=== PATIENT | male | born 1950 | race Asian ===

== ENCOUNTER 2017-02-11 03:35 | Inpatient (IN) | payer MEDICARE, OTHER ==
[~2017-02-11] VITALS: Ht 165.1 cm; Wt 56.4 kg
[2017-02-11] MEDS ORDERED: DILT120T PO (03:41)
[2017-02-11] MEDS ORDERED: ATOR40TA28 PO (03:41)
[2017-02-11] MEDS ORDERED: METF500T4 PO (03:41)
[2017-02-11] MEDS ORDERED: PANT40TA25 PO (03:41)
[2017-02-11] MEDS ORDERED: FERR-89 PO (03:41)
[2017-02-11] MEDS ORDERED: LISI-662 PO (03:41)
[2017-02-11] MEDS ORDERED: ASPI-1182 PO (03:41)
[2017-02-11] MEDS ORDERED: 0.9% SODIUM CHLORIDE 10 ML SYRINGE IVP PRN ×2 (03:45→04:45)
[2017-02-11 03:57] LABS: GLUCOSE,POINT OF CARE 176 MG/DL (70-110)
[2017-02-11 03:58] LABS: BASOPHILS % (AUTO) 0.4 % (0.0-2.0); EOSINOPHILS % (AUTO) 0.9 % (1.0-6.0); HEMATOCRIT 43.1 % (41-53); HEMOGLOBIN 14.6 g/dL (13.5-17.5); LYMPHOCYTES # (AUTO) 4.6 K/uL (1.0-4.8); LYMPHOCYTES % (AUTO) 34.6 % (22.0-44.0); MEAN CORPUSCULAR VOLUME 85 fL (80-100); MONOCYTES # (AUTO) 1.1 K/uL (0.1-1.0); MONOCYTES % (AUTO) 7.9 % (2.0-9.0); NEUTROPHILS # (AUTO) 7.5 K/uL (1.8-7.7); NEUTROPHILS % (AUTO) 56.2 % (40.0-70.0); PLATELET COUNT (AUTO) 242 K/uL (150-450); RED BLOOD CELL COUNT(AUTO) 5.05 MIL/uL (4.50-5.90); RED CELL DISTRIBUTION WIDTH 12.5 % (11.5-14.5); WHITE BLOOD COUNT (AUTO) 13.3 K/uL (4.5-11.0)
[2017-02-11 04:10] LABS: INR 0.9 (0.9-1.1)
[2017-02-11] MEDS ORDERED: ASPIRIN 325 MG TABLET PO ONE (04:15)
[2017-02-11] MEDS ORDERED: METOPROLOL TARTRATE 5 MG/5 ML VIAL IVP ONE ×3 (04:15)
[2017-02-11 04:16] LABS: ALANINE AMINOTRANSFERASE 13 U/L (12-78); ANION GAP 10 mmol/L (8-16); ASPARTATE AMINOTRANSFERASE 18 U/L (15-37); BILIRUBIN,TOTAL 0.5 mg/dL (0.1-1.0); CARBON DIOXIDE 30 mmol/L (22-29); CHLORIDE 87 mmol/L (98-107); CREATINE KINASE, TOTAL 94 U/L (39-308); GLOMERULAR FILTR. RATE CALC 35 mL/min (>60); SODIUM SERUM 127 mmol/L (136-145); UREA NITROGEN, BLOOD 19 mg/dL (7-18)
[2017-02-11 04:17] LABS: ALBUMIN 4.7 g/dL (3.4-5.0); TOTAL PROTEIN, SERUM 8.7 g/dL (6.4-8.2)
[2017-02-11] MEDS ORDERED: IOVERSOL 350 MG/ML 100 ML VIAL ONE (04:17)
[2017-02-11] MEDS ORDERED: SODIUM CHLORIDE 0.9% 100 ML ONE (04:17)
[2017-02-11 04:32] LABS: CREATINE KINASE MB 0.6 ng/mL (0-5)
[2017-02-11] MEDS ORDERED: ONDANSETRON HCL 4 MG/2 ML VIAL IVP PRN (04:45)
[2017-02-11] MEDS ORDERED: ACETAMINOPHEN 325 MG TABLET PO PRN ×2 (04:45→08:45)
[2017-02-11 05:26] VITALS: BP 140/76
[2017-02-11] MEDS ORDERED: INFLUENZA VIRUS VACCINE QVS 2017-18 (3YR+)/PF 60 MCG/0.5 ML SYRINGE IM ONE (06:00)
[2017-02-11 08:37] VITALS: BP 103/69
[2017-02-11] MEDS ORDERED: INSULIN ASPART 100 UNITS/ML SQ PRN (08:45)
[2017-02-11] MEDS ORDERED: DEXTROSE 50%-WATER 25 GM/50 ML SYRINGE IVP PRN (08:45)
[2017-02-11] MEDS ORDERED: ALBUTEROL SULFATE 2.5 MG/0.5 ML NEB SOLUTION NEB PRN (08:45)
[2017-02-11] MEDS ORDERED: BISACODYL 10 MG RECTAL RECTAL SUPPOSITORY PR PRN (08:45)
[2017-02-11] MEDS: DOCUSATE SODIUM 100 MG CAPSULE PO SCH ×2 (09:00→19:57)
[2017-02-11] MEDS: PANTOPRAZOLE SODIUM 40 MG DR TABLET PO SCH (09:20)
[2017-02-11] MEDS: ASPIRIN 81 MG CHEWABLE TABLET PO SCH (09:20)
[2017-02-11] MEDS: HEPARIN SODIUM,PORCINE 5,000 UNITS/ML VIAL SQ SCH ×2 (09:21→19:58)
[2017-02-11] MEDS: SODIUM CHLORIDE 0.9% 1,000 ML IV SCH ×2 (09:24→23:39)
[2017-02-11 11:37] VITALS: BP 132/92
[2017-02-11 11:42] LABS: APPEARANCE,URINE CLEAR (CLEAR); GLUCOSE, URINE (UA) NEGATIVE (NEGATIVE); KETONES,URINE TRACE mg/dL (NEGATIVE); LEUKOCYTE ESTERASE ,URINE NEGATIVE (NEGATIVE); OCCULT BLOOD,URINE NEGATIVE (NEGATIVE); PROTEIN,URINE NEGATIVE (NEGATIVE)
[2017-02-11 12:10] LABS: ADD UA MICROSCOPIC NO
[2017-02-11 15:48] VITALS: BP 135/99
[2017-02-11 19:49] VITALS: BP 146/96
[2017-02-11] MEDS: ATORVASTATIN CALCIUM 20 MG TABLET PO SCH (19:57)
[2017-02-11 20:43] LABS: GLUCOSE,POINT OF CARE 106 MG/DL (70-110)
[2017-02-11 20:43] LABS: GLUCOSE,POINT OF CARE 126 MG/DL (70-110)
[2017-02-11 23:49] VITALS: BP 155/108
[2017-02-12 07:32] VITALS: BP 148/110
[2017-02-12] MEDS: DOCUSATE SODIUM 100 MG CAPSULE PO SCH ×2 (09:00→20:44)
[2017-02-12] MEDS: HEPARIN SODIUM,PORCINE 5,000 UNITS/ML VIAL SQ SCH ×2 (09:26→20:44)
[2017-02-12] MEDS: ASPIRIN 81 MG CHEWABLE TABLET PO SCH (09:26)
[2017-02-12] MEDS: PANTOPRAZOLE SODIUM 40 MG DR TABLET PO SCH (09:26)
[2017-02-12 11:27] VITALS: BP 150/102
[2017-02-12] MEDS: SODIUM CHLORIDE 0.9% 1,000 ML IV SCH (13:25)
[2017-02-12] MEDS: METOPROLOL TARTRATE 25 MG TABLET PO SCH ×2 (13:25→20:44)
[2017-02-12 15:24] VITALS: BP 127/92
[2017-02-12 20:11] VITALS: BP 128/89
[2017-02-12 20:14] LABS: GLUCOSE,POINT OF CARE 129 MG/DL (70-110)
[2017-02-12 20:15] LABS: GLUCOSE,POINT OF CARE 119 MG/DL (70-110)
[2017-02-12 20:17] LABS: GLUCOSE,POINT OF CARE 127 MG/DL (70-110)
[2017-02-12] MEDS: ATORVASTATIN CALCIUM 20 MG TABLET PO SCH (20:44)
[2017-02-12 21:07] LABS: GLUCOSE,POINT OF CARE 122 MG/DL (70-110)
[2017-02-13 00:12] VITALS: BP 130/87
[2017-02-13] MEDS: SODIUM CHLORIDE 0.9% 1,000 ML IV SCH (03:38)
[2017-02-13 04:24] VITALS: BP 129/92
[2017-02-13 08:01] VITALS: BP 139/92
[2017-02-13] MEDS: ASPIRIN 81 MG CHEWABLE TABLET PO SCH (08:54)
[2017-02-13] MEDS: DOCUSATE SODIUM 100 MG CAPSULE PO SCH (08:54)
[2017-02-13] MEDS: METOPROLOL TARTRATE 25 MG TABLET PO SCH (08:54)
[2017-02-13] MEDS: PANTOPRAZOLE SODIUM 40 MG DR TABLET PO SCH (08:54)
[2017-02-13] MEDS: HEPARIN SODIUM,PORCINE 5,000 UNITS/ML VIAL SQ SCH (08:55)
[2017-02-13 11:26] LABS: BASOPHILS % (AUTO) 0.9 % (0.0-2.0); EOSINOPHILS % (AUTO) 0.7 % (1.0-6.0); HEMATOCRIT 35.3 % (41-53); HEMOGLOBIN 12.3 g/dL (13.5-17.5); LYMPHOCYTES # (AUTO) 1.4 K/uL (1.0-4.8); LYMPHOCYTES % (AUTO) 22.7 % (22.0-44.0); MEAN CORPUSCULAR HEMOGLOBIN 29.5 pg (26.0-34.0); MEAN CORPUSCULAR HGB CONC 34.9 G/dL (31.0-37.0); MEAN CORPUSCULAR VOLUME 84 fL (80-100); MONOCYTES # (AUTO) 0.6 K/uL (0.1-1.0); MONOCYTES % (AUTO) 9.4 % (2.0-9.0); NEUTROPHILS # (AUTO) 4.2 K/uL (1.8-7.7); NEUTROPHILS % (AUTO) 66.3 % (40.0-70.0); PLATELET COUNT (AUTO) 228 K/uL (150-450); RED BLOOD CELL COUNT(AUTO) 4.17 MIL/uL (4.50-5.90); RED CELL DISTRIBUTION WIDTH 12.6 % (11.5-14.5); WHITE BLOOD COUNT (AUTO) 6.3 K/uL (4.5-11.0)
[2017-02-13 11:36] LABS: CALCIUM, TOTAL 7.7 mg/dL (8.8-10.5); CREATININE 1.24 mg/dL (0.60-1.30); POTASSIUM 3.2 mmol/L (3.5-5.1)
[2017-02-13 11:49] VITALS: BP 135/101
[2017-02-13] MEDS ORDERED: POTASSIUM CHLORIDE 10% 40 MEQ/30 ML LIQUID UDCUP PO ONE (12:15)
[2017-02-15 05:28] LABS: GLUCOSE,POINT OF CARE 87 MG/DL (70-110)
[2017-02-15 05:28] LABS: GLUCOSE,POINT OF CARE 116 MG/DL (70-110)
== END 2017-02-13 14:55 | disposition home health service (06) | DRG 682 ==
LOC: EMS 03:36 → 5N 04:42 → EMS 05:10 → 5S 20:10
PROVIDERS: ADMIT Internal Medicine; ATTEND Internal Medicine
DX: N17.9 Acute kidney failure, unspecified (principal); E43 Unspecified severe protein-calorie malnutrition; G93.40 Encephalopathy, unspecified; G45.9 Transient cerebral ischemic attack, unspecified; E87.1 Hypo-osmolality and hyponatremia; I48.2 Chronic atrial fibrillation; E11.9 Type 2 diabetes mellitus without complications; I10 Essential (primary) hypertension; Z68.20 Body mass index [BMI] 20.0-20.9, adult; Z86.73 Personal history of transient ischemic attack (TIA), and cerebral infarction without residual deficits; Z79.82 Long term (current) use of aspirin
CPT/HCPCS: 70496; 82962; 93005; 93880; 97162; 97530; 99291; J1644; J3490; J7030; J7050

== ENCOUNTER 2019-02-23 16:57 | Inpatient (IN) | payer OTHER ==
[~2019-02-23] VITALS: Ht 162.6 cm; Wt 46.1 kg
[~2019-02-23 16:57] MED LIST: ASPI-1182 PO; ATOR40TA28 PO; DILT120T PO; FERR-89 PO; PANT40TA25 PO
[2019-02-23] MEDS ORDERED: PANTOPRAZOLE SODIUM 40 MG/VIAL IVP ONE ×2 (17:15→22:00)
[2019-02-23] MEDS ORDERED: SODIUM CHLORIDE 0.9% 1,000 ML IV ONE ×2 (17:15→19:00)
[2019-02-23] MEDS ORDERED: DOCU-342 PO (17:18)
[2019-02-23] MEDS ORDERED: MAGN250T29 PO (17:18)
[2019-02-23] MEDS ORDERED: KDUR10 PO (17:18)
[2019-02-23] MEDS ORDERED: FURO20 PO (17:18)
[2019-02-23 19:13] LABS: HEMATOCRIT 22.1 % (41-53); HEMOGLOBIN 7.5 g/dL (13.5-17.5); MEAN CORPUSCULAR HEMOGLOBIN 29.5 pg (26.0-34.0); MEAN CORPUSCULAR VOLUME 87 fL (80-100); RED BLOOD CELL COUNT(AUTO) 2.55 MIL/uL (4.50-5.90); RED CELL DISTRIBUTION WIDTH 18.3 % (11.5-14.5)
[2019-02-23 19:24] LABS: ALBUMIN 1.6 g/dL (3.4-5.0); BILIRUBIN,TOTAL 0.5 mg/dL (0.1-1.0); CREATININE 7.92 mg/dL (0.60-1.30); POTASSIUM 4.5 mmol/L (3.5-5.1); TOTAL PROTEIN, SERUM 4.5 g/dL (6.4-8.2)
[2019-02-23 19:28] LABS: CALCIUM, TOTAL 5.3 mg/dL (8.8-10.5)
[2019-02-23] MEDS ORDERED: DESMOPRESSIN ACETATE 4 MCG/ML VIAL IVP ONE (19:30)
[2019-02-23] MEDS ORDERED: CALCIUM GLUCONATE 100 MG/ML 10 ML IVP ONE ×2 (19:45→22:00)
[2019-02-23] MEDS ORDERED: PHENYLEPHRINE 200 MG/D5%-WATER 250 ML IV PRN (19:45)
[2019-02-23 20:00] LABS: INR 1.2 (0.9-1.1); PROTHROMBIN TIME 12.5 SEC (9.4-11.6)
[2019-02-23 20:06] LABS: PLATELET COUNT (AUTO) 96 K/uL (150-450)
[2019-02-23 20:08] LABS: BAND NEUTROPHILS % (MANUAL) 10 % (0-5); LYMPHOCYTES % (MANUAL) 3 % (22-44); MONOCYTES % (MANUAL) 2 % (2-9); SEGMENTED NEUTROPHILS % 85 % (40-70)
[2019-02-23 20:29] LABS: APPEARANCE,URINE CLOUDY (CLEAR); BILIRUBIN,URINE NEGATIVE (NEGATIVE); GLUCOSE, URINE (UA) NEGATIVE (NEGATIVE); KETONES,URINE NEGATIVE (NEGATIVE); LEUKOCYTE ESTERASE ,URINE MODERATE (NEGATIVE); NITRATE,URINE NEGATIVE (NEGATIVE); OCCULT BLOOD,URINE LARGE (NEGATIVE); PROTEIN,URINE TRACE (NEGATIVE); UROBILINOGEN,URINE 0.2 mg/dL (<=1.0)
[2019-02-23] MEDS ORDERED: ONDANSETRON HCL 4 MG/2 ML VIAL IVP PRN ×2 (20:30→22:00)
[2019-02-23 20:41] LABS: BACTERIA,URINE Few /HPF (None Seen); SQUAMOUS EPITHELIAL CELL,UR Few /LPF (None Seen)
[2019-02-23 20:42] LABS: AMORPHOUS SEDIMENT,UR Moderate /LPF (None Seen)
[2019-02-23] MEDS ORDERED: CefTRIAXone 1 GM/DEXTROSE 50 ML IV ONE (20:45)
[2019-02-23] MEDS ORDERED: 0.9% SODIUM CHLORIDE 10 ML SYRINGE IVP PRN (22:00)
[2019-02-23] MEDS ORDERED: DEXTROSE 5% IV PRN (22:15)
[2019-02-23] MEDS ORDERED: CALCIUM GLUCONATE IV PRN (22:15)
[2019-02-23] MEDS ORDERED: WATER IV PRN (22:15)
[2019-02-23 22:30] VITALS: BP 95/48
[2019-02-23 22:45] VITALS: BP 112/66
[2019-02-23 23:00] VITALS: BP 83/41
[2019-02-23] MEDS ORDERED: SODIUM CHLORIDE 0.9% 250 ML IV ONE (23:04)
[2019-02-23 23:15] VITALS: BP 107/71
[2019-02-23 23:30] VITALS: BP 81/45
[2019-02-23] MEDS ORDERED: METOPROLOL TARTRATE 5 MG/5 ML VIAL IVP PRN (23:45)
[2019-02-24] VITALS (9 sets, daily range): BP systolic 85–117; BP diastolic 37–85
[2019-02-24 05:32] LABS: BASOPHILS % (AUTO) 0.2 % (0.0-2.0); EOSINOPHILS % (AUTO) 0.1 % (1.0-6.0); HEMATOCRIT 34.2 % (41-53); HEMOGLOBIN 11.3 g/dL (13.5-17.5); LYMPHOCYTES # (AUTO) 0.7 K/uL (1.0-4.8); LYMPHOCYTES % (AUTO) 5.8 % (22.0-44.0); MEAN CORPUSCULAR HEMOGLOBIN 28.8 pg (26.0-34.0); MEAN CORPUSCULAR VOLUME 87 fL (80-100); MONOCYTES # (AUTO) 0.2 K/uL (0.1-1.0); MONOCYTES % (AUTO) 1.6 % (2.0-9.0); NEUTROPHILS # (AUTO) 10.4 K/uL (1.8-7.7); PLATELET COUNT (AUTO) 88 K/uL (150-450); RED BLOOD CELL COUNT(AUTO) 3.92 MIL/uL (4.50-5.90); RED CELL DISTRIBUTION WIDTH 15.8 % (11.5-14.5)
[2019-02-24 05:38] LABS: CREATININE 7.34 mg/dL (0.60-1.30); POTASSIUM 4.4 mmol/L (3.5-5.1)
[2019-02-24 05:59] LABS: NEUTROPHILS % (AUTO) 92.3 % (40.0-70.0)
[2019-02-24] MEDS ORDERED: CALCIUM GLUCONATE 100 MG/ML 10 ML IVP ONE (09:30)
[2019-02-24] MEDS ORDERED: SODIUM BICARBONATE 75 MEQ in SODIUM CHLORIDE 0.45% 1,000 ML IV ONE (09:30)
[2019-02-24] MEDS ORDERED: MAGNESIUM SULFATE 2 GM/WATER 50 ML IV ONE ×2 (09:30→13:00)
[2019-02-24] MEDS: PANTOPRAZOLE SODIUM 40 MG/VIAL IVP SCH ×2 (09:31→21:15)
[2019-02-24] MEDS: PHYTONADIONE 10 MG/1 ML AMP IM SCH (09:32)
[2019-02-24] MEDS ORDERED: FentaNYL CITRATE-PF 100 MCG/2 ML VIAL ONE (11:28)
[2019-02-24] MEDS ORDERED: MIDAZOLAM HCL 5 MG/ML VIAL ONE (11:29)
[2019-02-24] MEDS ORDERED: SODIUM CHLORIDE 0.9% 1,000 ML IV ONE (11:38)
[2019-02-24 13:11] LABS: HEMATOCRIT 35.1 % (41-53); HEMOGLOBIN 11.8 g/dL (13.5-17.5)
[2019-02-24 13:24] LABS: CALCIUM, TOTAL 6.4 mg/dL (8.8-10.5); CREATININE 7.49 mg/dL (0.60-1.30); MAGNESIUM 3.1 mg/dL (1.80-2.40); PHOSPHORUS 4.6 mg/dL (2.5-4.9); POTASSIUM 4.3 mmol/L (3.5-5.1)
[2019-02-24 13:33] LABS: LACTIC ACID 2.5 mmol/L (0.4-2.0)
[2019-02-24] MEDS ORDERED: ALBUMIN HUMAN 5%-12.5GM/250ML 250 ML IV ONE ×2 (14:28→16:15)
[2019-02-24] MEDS ORDERED: RINGERS SOLUTION,LACTATED 1,000 ML IV ONE ×2 (14:29→14:45)
[2019-02-24] MEDS ORDERED: NOREPINEPHRINE 4 MG/D5%-WATER 250 ML IV PRN (14:45)
[2019-02-24] MEDS ORDERED: RINGERS SOLUTION,LACTATED 1,250 ML IV ONE (15:00)
[2019-02-24] MEDS: HYDROCORTISONE SOD SUCC 100 MG/2 ML VIAL IVP SCH ×2 (15:24→20:01)
[2019-02-24] MEDS: VASOPRESSIN 40 UNITS in DEXTROSE 5%-WATER 98 ML IV PRN (15:30)
[2019-02-24] MEDS ORDERED: HEPARIN SODIUM,PORCINE 1,000 UNITS/ML VIAL ONE (16:04)
[2019-02-24 16:06] LABS: CREATININE 6.86 mg/dL (0.60-1.30)
[2019-02-24 16:07] LABS: ABG A-A DIFF O2 353.8 mmHg (10-20.0); ABG CARBOXYHEMOGLOBIN 0.3 % (0.0-1.5); ABG METHEMOGLOBIN 0.3 % (0.0-1.5); ABG OXYGEN CONTENT 15.2 mL/dL (15.0-23.0); ABG OXYGEN SATURATION 99.2 % (95.0-98.0); ABG OXYHEMOGLOBIN 98.6 % (94.0-100.0); ABG PCO2 31 mmHg (35-45); ABG TOTAL HEMOGLOBIN 10.3 G/dL (12.0-18.0); PO2, ARTERIAL BG 332.3 mmHg (75.0-83.0); SOURCE, BLOOD GAS ARTERIAL; TEMPERATURE, FAHRENHEIT, BG 95.6 FAHREN (96.0-98.6)
[2019-02-24 16:08] LABS: ABG PH 7.206 (7.35-7.450); O2 DEVICE,BLOOD GAS VENTILATOR (ROOM AIR); PEEP,BG 5 cm H2O; SITE, BLOOD GAS ARTERIAL LINE; VT, ABG 350 ml
[2019-02-24] MEDS ORDERED: HEPARIN SODIUM,PORCINE 100 UNITS/ML 5 ML VIAL IVP ONE ×2 (16:15)
[2019-02-24] MEDS ORDERED: SODIUM BICARBONATE 150 MEQ in DEXTROSE 5%-WATER 1,000 ML IV ONE (16:30)
[2019-02-24] MEDS ORDERED: SODIUM BICARBONATE [ADULT] 8.4% 50 MEQ/50 ML SYRINGE IVP ONE (16:30)
[2019-02-24] MEDS ORDERED: SODIUM CHLORIDE 0.9% 2,000 ML IV ONE (18:09)
[2019-02-24] MEDS ORDERED: POTASSIUM CHLORIDE 20 MEQ in NXSTAGE RFP-402 K0/CA3 5,000 ML IRRIG PRN (18:15)
[2019-02-24 18:20] LABS: HEMATOCRIT 30.1 % (41-53); HEMOGLOBIN 10.1 g/dL (13.5-17.5)
[2019-02-24 20:42] LABS: ABG A-A DIFF O2 429.5 mmHg (10-20.0); ABG CARBOXYHEMOGLOBIN 0.3 % (0.0-1.5); ABG HCO3 18.4 mmol/L (22.0-26.0); ABG METHEMOGLOBIN 0.3 % (0.0-1.5); ABG OXYGEN CONTENT 14.3 mL/dL (15.0-23.0); ABG OXYHEMOGLOBIN 94.4 % (94.0-100.0); ABG PCO2 35 mmHg (35-45); ABG PH 7.333 (7.35-7.450); ABG TOTAL HEMOGLOBIN 10.7 G/dL (12.0-18.0); PO2, ARTERIAL BG 73.6 mmHg (75.0-83.0); SOURCE, BLOOD GAS ARTERIAL; TEMPERATURE, FAHRENHEIT, BG 93.5 FAHREN (96.0-98.6)
[2019-02-24 20:43] LABS: O2 DEVICE,BLOOD GAS VENTILATOR (ROOM AIR); PEEP,BG 5 cm H2O; SITE, BLOOD GAS ARTERIAL LINE; VT, ABG 350 ml
[2019-02-24] MEDS ORDERED: CefTRIAXone 1 GM/DEXTROSE 50 ML IV SCH (21:00)
[2019-02-24] MEDS ORDERED: PHENYLEPHRINE HCL 400 MG in DEXTROSE 5%-WATER 210 ML IV PRN (23:00)
[2019-02-25] VITALS: BP 92/55
[2019-02-25] MEDS: HYDROCORTISONE SOD SUCC 100 MG/2 ML VIAL IVP SCH ×4 (00:31→18:29)
[2019-02-25] MEDS: NOREPINEPHRINE BITARTRATE 16 MG in DEXTROSE 5%-WATER 234 ML IV PRN ×2 (02:34→16:35)
[2019-02-25] MEDS ORDERED: PROPOFOL 1% 20 ML VIAL IVP ONE (02:45)
[2019-02-25 02:48] LABS: HEMATOCRIT 31.2 % (41-53); HEMOGLOBIN 10.7 g/dL (13.5-17.5)
[2019-02-25 03:56] LABS: ABG A-A DIFF O2 355.3 mmHg (10-20.0); ABG BASE EXCESS -6.3 mmol/L (-2.0-3.0); ABG CARBOXYHEMOGLOBIN 0.1 % (0.0-1.5); ABG HCO3 19.3 mmol/L (22.0-26.0); ABG METHEMOGLOBIN 0.3 % (0.0-1.5); ABG OXYGEN CONTENT 14.9 mL/dL (15.0-23.0); ABG OXYGEN SATURATION 94.5 % (95.0-98.0); ABG OXYHEMOGLOBIN 94.1 % (94.0-100.0); ABG PCO2 43 mmHg (35-45); ABG PH 7.294 (7.35-7.450); ABG TOTAL HEMOGLOBIN 11.2 G/dL (12.0-18.0); O2 DEVICE,BLOOD GAS VENTILATOR (ROOM AIR); PO2, ARTERIAL BG 67.6 mmHg (75.0-83.0); SITE, BLOOD GAS ARTERIAL LINE; SOURCE, BLOOD GAS ARTERIAL
[2019-02-25 03:57] LABS: PEEP,BG 5 cm H2O; VT, ABG 350 ml
[2019-02-25 04:00] VITALS: BP 80/45
[2019-02-25] MEDS: VASOPRESSIN 40 UNITS in DEXTROSE 5%-WATER 98 ML IV PRN (06:19)
[2019-02-25 07:40] LABS: ABG BASE EXCESS -5.8 mmol/L (-2.0-3.0); ABG CARBOXYHEMOGLOBIN 0.3 % (0.0-1.5); ABG HCO3 19.8 mmol/L (22.0-26.0); ABG METHEMOGLOBIN 0.3 % (0.0-1.5); ABG OXYGEN CONTENT 15.1 mL/dL (15.0-23.0); ABG OXYHEMOGLOBIN 94.4 % (94.0-100.0); ABG PCO2 45 mmHg (35-45); ABG PH 7.283 (7.35-7.450); ABG TOTAL HEMOGLOBIN 11.3 G/dL (12.0-18.0); O2 DEVICE,BLOOD GAS VENTILATOR (ROOM AIR); PO2, ARTERIAL BG 85.3 mmHg (75.0-83.0); SITE, BLOOD GAS ARTERIAL LINE; SOURCE, BLOOD GAS ARTERIAL; TEMPERATURE, FAHRENHEIT, BG 98.6 FAHREN (96.0-98.6); VT, ABG 400 ml
[2019-02-25 07:41] LABS: PEEP,BG 5 cm H2O
[2019-02-25 08:00] VITALS: BP 82/42
[2019-02-25] MEDS ORDERED: VANCOMYCIN HCL 1 GM/D5% WATER 200 ML IV ONE (08:00)
[2019-02-25] MEDS ORDERED: PIPERACILLIN SODIUM/TAZOBACTAM 2.25 GM in DEXTROSE 5%-WATER 50 ML IV ONE (08:00)
[2019-02-25] MEDS ORDERED: DIGOXIN 250 MCG/ML 2 ML AMP IVP ONE (08:30)
[2019-02-25] MEDS ORDERED: AMIODARONE HCL 360 MG in DEXTROSE 5%-WATER 242.8 ML IV ONE (08:30)
[2019-02-25] MEDS: PHYTONADIONE 10 MG/1 ML AMP IM SCH (08:51)
[2019-02-25] MEDS: PANTOPRAZOLE SODIUM 40 MG/VIAL IVP SCH ×2 (08:51→20:21)
[2019-02-25] MEDS ORDERED: CALCIUM GLUCONATE 1,000 MG in DEXTROSE 5%-WATER 50 ML IV ONE (09:15)
[2019-02-25] MEDS ORDERED: SODIUM BICARBONATE [ADULT] 8.4% 50 MEQ/50 ML SYRINGE IVP ONE (09:15)
[2019-02-25 09:44] LABS: ABG BASE EXCESS -10.3 mmol/L (-2.0-3.0); ABG CARBOXYHEMOGLOBIN 0.3 % (0.0-1.5); ABG HCO3 16.8 mmol/L (22.0-26.0); ABG METHEMOGLOBIN 0.3 % (0.0-1.5); ABG OXYGEN CONTENT 13.9 mL/dL (15.0-23.0); ABG OXYHEMOGLOBIN 89.5 % (94.0-100.0); ABG PCO2 35 mmHg (35-45); ABG PH 7.288 (7.35-7.450); PO2, ARTERIAL BG 66.6 mmHg (75.0-83.0); SOURCE, BLOOD GAS ARTERIAL; TEMPERATURE, FAHRENHEIT, BG 98.6 FAHREN (96.0-98.6)
[2019-02-25 09:45] LABS: O2 DEVICE,BLOOD GAS VENTILATOR (ROOM AIR); PEEP,BG 5 cm H2O; SITE, BLOOD GAS ARTERIAL LINE; VT, ABG 400 ml
[2019-02-25 12:00] VITALS: BP 102/54
[2019-02-25 12:11] LABS: BASOPHILS % (AUTO) 0.2 % (0.0-2.0); EOSINOPHILS % (AUTO) 0.1 % (1.0-6.0); HEMATOCRIT 29.6 % (41-53); HEMOGLOBIN 10.2 g/dL (13.5-17.5); LYMPHOCYTES # (AUTO) 0.3 K/uL (1.0-4.8); LYMPHOCYTES % (AUTO) 7.5 % (22.0-44.0); MEAN CORPUSCULAR HEMOGLOBIN 29.6 pg (26.0-34.0); MEAN CORPUSCULAR HGB CONC 34.4 G/dL (31.0-37.0); MEAN CORPUSCULAR VOLUME 86 fL (80-100); MONOCYTES % (AUTO) 0.8 % (2.0-9.0); NEUTROPHILS # (AUTO) 3.6 K/uL (1.8-7.7); RED BLOOD CELL COUNT(AUTO) 3.45 MIL/uL (4.50-5.90); RED CELL DISTRIBUTION WIDTH 16.5 % (11.5-14.5)
[2019-02-25 12:55] LABS: ALBUMIN 1.4 g/dL (3.4-5.0); BILIRUBIN,TOTAL 0.4 mg/dL (0.1-1.0); CALCIUM, TOTAL 6.5 mg/dL (8.8-10.5); CREATININE 3.18 mg/dL (0.60-1.30); POTASSIUM 3.8 mmol/L (3.5-5.1); THYROID STIMULATING HORMONE 1.25 uIU/mL (0.36-3.74); TOTAL PROTEIN, SERUM 3.8 g/dL (6.4-8.2)
[2019-02-25 12:58] LABS: NEUTROPHILS % (AUTO) 91.4 % (40.0-70.0); PLATELET COUNT (AUTO) 14 K/uL (150-450)
[2019-02-25] MEDS ORDERED: HEPARIN SODIUM,PORCINE 1,000 UNITS/ML VIAL ONE (13:46)
[2019-02-25] MEDS ORDERED: SODIUM CHLORIDE 0.9% 500 ML IV ONE (14:17)
[2019-02-25] MEDS ORDERED: AMIODARONE HCL 540 MG in DEXTROSE 5%-WATER 239.2 ML IV ONE (14:30)
[2019-02-25] MEDS ORDERED: ALBUMIN HUMAN 25%-12.5GM/50ML 100 ML ONE (15:49)
[2019-02-25 16:00] VITALS: BP 61/31
[2019-02-25] MEDS: ALBUMIN HUMAN 25%-25GM/100ML 100 ML IV SCH (16:32)
[2019-02-25] MEDS: SODIUM BICARBONATE 150 MEQ in DEXTROSE 5%-WATER 1,000 ML IV SCH ×2 (16:32→20:38)
[2019-02-25 20:00] VITALS: BP 76/41
[2019-02-25] MEDS ORDERED: PIPERACILLIN SODIUM/TAZOBACTAM 2.25 GM in DEXTROSE 5%-WATER 50 ML IV SCH (20:00)
[2019-02-25] MEDS ORDERED: VANCOMYCIN HCL 1 GM/D5% WATER 200 ML IV PRN (21:00)
[2019-02-25 22:51] LABS: CREATININE 3.59 mg/dL (0.60-1.30); POTASSIUM 3.3 mmol/L (3.5-5.1)
[2019-02-25 23:01] LABS: CALCIUM, TOTAL 5.8 mg/dL (8.8-10.5)
[2019-02-26] VITALS: BP 77/41
[2019-02-26] MEDS: HYDROCORTISONE SOD SUCC 100 MG/2 ML VIAL IVP SCH (00:04)
[2019-02-26] MEDS: ALBUMIN HUMAN 25%-25GM/100ML 100 ML IV SCH (00:05)
[2019-02-26] MEDS: SODIUM BICARBONATE 150 MEQ in DEXTROSE 5%-WATER 1,000 ML IV SCH (01:31)
[2019-02-26] MEDS ORDERED: VECURONIUM BROMIDE 10 MG/VIAL IV ONE (05:09)
[2019-02-26] MEDS ORDERED: AMIODARONE HCL 750 MG in DEXTROSE 5%-WATER 485 ML IV SCH (08:24)
== END 2019-02-26 05:10 | disposition expired | DRG 871 ==
LOC: EMS 16:58 → ICU 21:05
PROVIDERS: ADMIT Internal Medicine; ATTEND Internal Medicine
PROC: 30233N1 Transfusion of Nonautologous Red Blood Cells into Peripheral Vein, Percutaneous Approach (ICD-10-PCS; 2019-02-23)
PROC: 0BH17EZ Insertion of Endotracheal Airway into Trachea, Via Natural or Artificial Opening (ICD-10-PCS; 2019-02-24)
PROC: 05HY33Z Insertion of Infusion Device into Upper Vein, Percutaneous Approach (ICD-10-PCS; 2019-02-24)
PROC: B54MZZA Ultrasonography of Right Upper Extremity Veins, Guidance (ICD-10-PCS; 2019-02-24)
PROC: 0DJ08ZZ Inspection of Upper Intestinal Tract, Via Natural or Artificial Opening Endoscopic (ICD-10-PCS; 2019-02-24)
PROC: 5A1D90Z Performance of Urinary Filtration, Continuous, Greater than 18 hours Per Day (ICD-10-PCS; 2019-02-24)
PROC: 5A1945Z Respiratory Ventilation, 24-96 Consecutive Hours (ICD-10-PCS; principal; 2019-02-24 12:00)
PROC: 5A1D90Z Performance of Urinary Filtration, Continuous, Greater than 18 hours Per Day (ICD-10-PCS; 2019-02-25)
DX: A41.9 Sepsis, unspecified organism (principal); J96.00 Acute respiratory failure, unspecified whether with hypoxia or hypercapnia; R65.21 Severe sepsis with septic shock; K29.71 Gastritis, unspecified, with bleeding; N17.0 Acute kidney failure with tubular necrosis; E43 Unspecified severe protein-calorie malnutrition; E87.2 Acidosis; G93.40 Encephalopathy, unspecified; E87.1 Hypo-osmolality and hyponatremia; E11.22 Type 2 diabetes mellitus with diabetic chronic kidney disease; I12.9 Hypertensive chronic kidney disease with stage 1 through stage 4 chronic kidney disease, or unspecified chronic kidney disease; N18.9 Chronic kidney disease, unspecified; R57.8 Other shock; I48.91 Unspecified atrial fibrillation; D64.9 Anemia, unspecified; E83.51 Hypocalcemia; E87.8 Other disorders of electrolyte and fluid balance, not elsewhere classified; E83.42 Hypomagnesemia; D69.6 Thrombocytopenia, unspecified; E78.5 Hyperlipidemia, unspecified; Z87.891 Personal history of nicotine dependence; Z86.73 Personal history of transient ischemic attack (TIA), and cerebral infarction without residual deficits; Z90.49 Acquired absence of other specified parts of digestive tract
CPT/HCPCS: 51702; 70450; 74176; 76770; 82306; 82805; 83010; 83605; 83615; 83735; 83970; 84100; 84443; 85014; 85018; 85362; 86850; 86900; 86901; 86920; 87040; 87081; 87086; 87340; 93005; 94002; 94003; C9113; G0378; J0282; J0610; J0696; J1160; J1644; J1720; J2250; J2370; J2543; J2597; J2704; J3010; J3370; J3430; J3475; J3480; J3490; J7030; J7040; J7050; J7060; J7120; P9016; P9041; P9046; P9047